=== PATIENT | male | born 1990 ===

== ENCOUNTER 2019-03-01 13:22 | Emergency (ER) | payer OTHER ==
[2019-03-01 13:22] VITALS: BMI 23.0
[2019-03-01 13:33] VITALS: TEMP 99
--- NOTE | 2019-03-01 16:11 | US ---
Date of service: 03/01/2019 PROCEDURE: Left extremity nonvascular ultrasound HISTORY: left gluteal abscess COMPARISON: None TECHNIQUE: Standard protocol for this study/examination. FINDINGS: Phlegmonous process area of interest 1.2 x 2.2 x 1.4 cm. This extends to the skin surface. Surrounding subcutaneous edema noted. IMPRESSION: Phlegmonous process left gluteal region. No drainable collection.
--- NOTE | 2019-03-01 16:23 | CP.PCM.CON ---
<John Huerta - Last Filed: 03/01/19 18:15> History of Present Illness - History of Present Illness History of Present Illness: Surgery Consult Note- Dr. Chavarria Reason for Consult: Left Gluteal Abscess 28M pmhx significant for Left sided facial sebaceous cyst presents to [facility] for evaluation of a left gluteal that has been going on for 1 week. Patient denies history of other abscesses. Denies fevers, chills, chest pain, shortness of breath. Pain is associated with palpation. States some drainage of purulent and some sanguineous drainage. 12 pt ROS conducted, negative otherwise stated above PMH: denies PSH: excision of sebaceous cyst ALL: NKDA SocialHx: recreational ETOH, denies tobacco, recreational drug use FH: non-contributory Review of Systems - Review of Systems All systems: reviewed and no additional remarkable complaints except - Constitutional Constitutional: As Per HPI Past Patient History - Past Medical History & Family History Past Medical History?: No - Past Social History Smoking Status: Never Smoked - PSYCHIATRIC Hx Emotional Abuse: No Hx Physical Abuse: No Hx Substance Use: No - SURGICAL HISTORY Hx Surgeries: Yes Other/Comment: WART REMOVED - ANESTHESIA Hx Anesthesia: Yes Hx Anesthesia Reactions: No Hx Malignant Hyperthermia: No Meds Home Medications: Home Medication List Medication Instructions Recorded Confirmed Type Cephalexin [cephalexin] 500 mg PO Q6 #40 cap 03/01/19 Rx Sulfamethoxazole/Trimethoprim 1 tab PO BID #20 tab 03/01/19 Rx [Bactrim DS 800 mg-160 mg] Allergies/Adverse Reactions: Allergies Allergy/AdvReac Type Severity Reaction Status Date / Time No Known Allergies Allergy Verified 03/01/19 13:32 Physical Exam - Constitutional Appears: Non-toxic, No Acute Distress - Head Exam Head Exam: ATRAUMATIC - Eye Exam Eye Exam: EOMI. absent: Scleral icterus - ENT Exam ENT Exam: Mucous Membranes Moist - Respiratory Exam Respiratory Exam: NORMAL BREATHING PATTERN. absent: Accessory Muscle Use, Respiratory Distress - Cardiovascular Exam Cardiovascular Exam: REGULAR RHYTHM. absent: Bradycardia, Tachycardia - GI/Abdominal Exam GI & Abdominal Exam: Soft. absent: Firm, Guarding, Hernia, Rigid, Tenderness - Rectal Exam Additional comments: good tone, no hanna blood. Left gluteal abscess. left outer quadrant. Erythematous measuring 2x2 cm w/ induration. No palpable areas of fluctuance pin point eschar. Tenderness to palpation - Extremities Exam Extremities exam: Positive for: normal inspection. Negative for: calf tenderness - Neurological Exam Neurological exam: Alert, Oriented x3 - Psychiatric Exam Psychiatric exam: Normal Affect - Skin Skin Exam: Intact, Warm Results - Vital Signs Recent Vital Signs: Last Vital Signs Temp 99 F 03/01/19 13:31 Pulse 90 03/01/19 13:31 Resp 16 03/01/19 13:31 BP 145/77 03/01/19 13:31 Pulse Ox 99 03/01/19 13:31 Assessment & Plan - Assessment and Plan (Free Text) Assessment: 28M w/ Left Gluteal abscess Plan: - cleared for discharge home on Abx- bactrim for 1 week - warm compresses q2h while awake at home - shower and keep area clean - follow up with Dr. Chavarria in clinic for re-evaluation in 1 week 03/11/19 - discussed w/ Dr. Chavarria Surgical Attending [facility] PGY2 <Alina Chavarria - Last Filed: 03/04/19 12:57> Results - Vital Signs Recent Vital Signs: Last Vital Signs Temp 99 F 03/01/19 13:31 Pulse 80 03/01/19 16:52 Resp 18 03/01/19 16:52 BP 137/84 03/01/19 16:52 Pulse Ox 99 03/01/19 22:37 Assessment & Plan - Assessment and Plan (Free Text) Plan: Agree with above assessment and plan.
--- NOTE | 2019-03-01 16:37 | C.PDOC ---
History Of Present Illness 28 year old male presents to the ED complaining of erythema and pain to left gluteal area ongoing for one week. Denies any fever or chills. Denies any trauma or injuries. Time Seen by Provider: 03/01/19 13:47 Chief Complaint (Nursing): Abnormal Skin Integrity History Per: Patient History/Exam Limitations: no limitations Onset/Duration Of Symptoms: Days Current Symptoms Are (Timing): Still Present Location Of Injury: Left: Buttock (erythema, pain ) Past Medical History Reviewed: Historical Data, Nursing Documentation, Vital Signs Vital Signs: Last Vital Signs Temp 99 F 03/01/19 13:31 Pulse 90 03/01/19 13:31 Resp 16 03/01/19 13:31 BP 145/77 03/01/19 13:31 Pulse Ox 99 03/01/19 13:31 Primary Care Provider: Oren Sanchez - Medical History PMH: No Chronic Diseases Other Surgeries: Hx of surgeries Family History: States: No Known Family Hx - Social History Hx Alcohol Use: Yes Hx Substance Use: No - Immunization History Hx Tetanus Toxoid Vaccination: No Hx Influenza Vaccination: No Hx Pneumococcal Vaccination: No Review Of Systems Except As Marked, All Systems Reviewed And Found Negative. Constitutional: Negative for: Fever, Chills Skin: Positive for: Other (erythema and pain to left gluteal area) Physical Exam - Physical Exam Appears: Non-toxic, No Acute Distress Skin: Warm, Dry, No Rash Head: Normacephalic Eye(s): bilateral: Normal Inspection Oral Mucosa: Moist Neck: Supple Chest: Symmetrical Cardiovascular: Rhythm Regular Respiratory: Normal Breath Sounds, No Rales, No Rhonchi, No Wheezing Back: Other (induration of skin to left mid gluteal region. Area tender to palpation. No fluctuance, no open sores, no drainage. ) Extremity: Bilateral: Atraumatic, Normal Color And Temperature, Normal ROM Neurological/Psych: Oriented x3, Normal Speech Gait: Steady ED Course And Treatment O2 Sat by Pulse Oximetry: 99 (RA) Pulse Ox Interpretation: Normal - CT Scan/US Left Ext US Other Rad Studies (CT/US): Read By Radiologist, Radiology Report Reviewed CT/US Interpretation: Accession No. : [id number]. Patient Name / ID : GUNNAR Coronado / [id number]. Exam Date : 03/01/2019 14:40:59 ( Approved ). Study Comment : Sex / Age : M / 28Y. Creator : Ross Stallworth MD. Dictator : Ross Stallworth MD. Cable Tower Operator : Rubber Goods Supervisor : Ross Stallworth MD. Approver2 : Report Date : 03/01/2019 16:07:34. My Comment : . Date of service: 03/01/2019. PROCEDURE: Left extremity nonvascular ultrasound. HISTORY: left gluteal abscess. COMPARISON: None. TECHNIQUE: Standard protocol for this study/examination. FINDINGS: Phlegmonous process area of interest 1.2 x 2.2 x 1.4 cm. This extends to the skin surface. Surrounding subcutaneous edema noted. IMPRESSION: Phlegmonous process left gluteal region. No drainable collection. Progress Note: Patient treated with Keflex and Bactrim. Surgery resident called for consult. Patient seen by surgery resident who spoke with Dr. Elliott Chavarria. Dr. Chavarria stated there is no need to drain. Instructed to prescribe antibiotics and follow up with him in his office. Disposition - Disposition Referrals: Alina Chavarria MD [Staff Provider] - Disposition: HOME/ ROUTINE Disposition Time: 16:35 Condition: STABLE Additional Instructions: Follow up with within 1-2 days. Return to ED if feel worse. Prescriptions: Sulfamethoxazole/Trimethoprim [Bactrim DS 800 mg-160 mg] 1 tab PO BID #20 tab Cephalexin [cephalexin] 500 mg PO Q6 #40 cap Instructions: Skin Abscess Forms: [facility] (Frisian) - Clinical Impression Clinical Impression: Skin infection - PA / POLICE OFFICER BOOKING / Resident Statement MD/DO has reviewed & agrees with the documentation as recorded. - Scribe Statement The provider has reviewed the documentation as recorded by the Scribe Sayra Fernandez All medical record entries made by the Scribe were at my direction and personally dictated by me. I have reviewed the chart and agree that the record accurately reflects my personal performance of the history, physical exam, medical decision making, and the department course for this patient. I have also personally directed, reviewed, and agree with the discharge instructions and disposition.
[2019-03-01] MEDS ORDERED: Tmp-Smz 800 mg-160 mg DS Tab PO SCH (16:45)
[2019-03-01 16:53] VITALS: BP 137/84; PULSE 80; RESP 18
[2019-03-01] MEDS ORDERED: Tmp-Smz 800 mg-160 mg DS Tab ONE (16:53)
[2019-03-01 16:55] VITALS: O2SAT 99
== END 2019-03-01 16:55 | disposition home or self-care (01) ==
LOC: C.ER 13:22
DX: L02.31 Cutaneous abscess of buttock (principal)